=== PATIENT | female | born 1955 | race Caucasian/White ===

== ENCOUNTER 2016-04-19 00:58 | Day surgery (SDC) | payer OTHER ==
[~2016-04-19 00:58] MED LIST: 0.9% Sodium Chloride 1,000 ML IV SCH; ACET-2605 PO; ALBU8.5H2 INHALATION; AMLO2.5T2 PO; BUPR1PAT4 TD; CARV25TA PO; DOCU-41 PO; DULO60CA42 PO; HYDR-3605 PO; IMI25 PO; Lactated Ringer's 1,000 ML IV ONE; Lidocaine Patch TRANSDERM; OLME20TA3 PO; RANI150C4 PO; Sodium Chloride LOK Flush 10 mL Syringe IV PRN; fentaNYL-PF 50 mCg/mL 2 mL Inj IVPUSH PRN
[2016-04-19] MEDS ORDERED: Lactated Ringer's 1,000 ML IV ONE (06:00)
== END 2016-04-19 23:59 | disposition home or self-care (01) ==
LOC: END 00:58
PROVIDERS: ATTEND Surgery

== ENCOUNTER 2016-10-08 15:17 | Observation (INO) | payer OTHER ==
[~2016-10-08] VITALS: Ht 162.6 cm; Wt 75.1 kg
[~2016-10-08 15:17] MED LIST changes: -0.9% Sodium Chloride 1,000 ML IV SCH; -Lactated Ringer's 1,000 ML IV ONE; -Sodium Chloride LOK Flush 10 mL Syringe IV PRN; -fentaNYL-PF 50 mCg/mL 2 mL Inj IVPUSH PRN
--- NOTE | 2016-10-08 16:42 | NUR ---
Admit: Patient arrived to [facility] via stretcher @ approx 1615. Patient transferred self to bed. Patient tearful on arrival "I'm scared". Patient reassured. SR 80s per telesales representative. VSS. Alert & oriented, complains of abdominal cramping, low back pain 9/10 and nausea. Declines offer of heating pad for pain. MD text paged to notify of arrival and patient needs. Bed in low and locked position, bed rails up x3. IV saline lock in left foot. Awaiting IV therapy to attempt new IV in upper extremities. Oriented to room and call light system.
[2016-10-08 16:46] VITALS: BP 128/76; PULSE 87; RESP 16; O2SAT 95
[2016-10-08 16:47] VITALS: PULSE 86
[2016-10-08] MEDS ORDERED: LOVA10TA PO (17:34)
[2016-10-08] MEDS ORDERED: NABU750T PO (17:34)
[2016-10-08] MEDS ORDERED: FENT1PAT11 TRANSDERM (17:34)
[2016-10-08] MEDS ORDERED: SUMA50TA2 PO (17:34)
[2016-10-08] MEDS ORDERED: PROM25TA14 PO (17:34)
[2016-10-08] MEDS ORDERED: DICY10CA13 PO (17:34)
[2016-10-08] MEDS ORDERED: AMLO5TAB2 PO (17:34)
[2016-10-08] MEDS ORDERED: FEXO-106 PO (17:34)
[2016-10-08] MEDS ORDERED: CARV25TA2 PO (17:34)
[2016-10-08] MEDS ORDERED: DULO60CA61 PO (17:34)
[2016-10-08] MEDS ORDERED: ALBU18HF INH (17:34)
[2016-10-08] MEDS ORDERED: RANI150T11 PO (17:34)
[2016-10-08] MEDS ORDERED: Ondansetron 2 mg/mL 2 mL Inj IVPUSH PRN (18:00)
[2016-10-08] MEDS ORDERED: Senna-Docusate 8.6-50 mg Tablet PO PRN (18:00)
[2016-10-08] MEDS ORDERED: Polyethylene Glycol (PEG) 17 Gm Powder PO PRN (18:00)
[2016-10-08] MEDS ORDERED: Alum-Mag Hydrox-Simeth 30 mL Suspension PO PRN (18:00)
[2016-10-08] MEDS ORDERED: fentaNYL-PF 50 mCg/mL 2 mL Inj IVPUSH PRN (18:10)
--- NOTE | 2016-10-08 18:17 | PCM.HPMED ---
Subjective Date of Service Oct 08, 2016 Primary Provider: Admitting Physician: Taiwo Reno MD Primary Care Physician: Polo Berger MD Attending Physician: Taiwo Reno MD Chief Complaint: Abdominal pain History of Present Illness: Guillermina Jimenez is a 61-year-old woman with past medical history significant for hypertension, back pain and narcotic dependence on fentanyl patch, constipation , anxiety and depression, migraines who presented to the [facility] emergency department due to running out of her fentanyl patch. The patient ran out 2 days ago. The patient states that her prescription was filled for a smaller number patches then she realized and she had not been able to get a refill from her primary care doctor. The patient notes nausea and abdominal pain as well as vomiting. She notes diaphoresis as well as some mild palpitations. The patient notes headache as well. She denies any fever, chills , cough, chest pressure, arm pain, neck pain, shortness of breath, orthopnea or paroxysmal nocturnal dyspnea. She denies any melena or hematochezia. She denies any hematemesis or coffee-ground emesis. The patient does have a history of prior myocardial infarction about 2 years ago. During this event the patient completely lost consciousness and does not remember any preceding symptoms. The patient did not undergo any interventions at the time. The patient is a smoker for many years and has been trying to reduce her smoking. Patient was transferred to our hospital due to a lack of beds at [facility]. The patient was noted to have labs that were significant for an elevated troponin I of 0.14 with a repeat troponin of 0.17. The ER physician at [facility] thought that she should undergo a cardiac workup due to her risk factors. Other labs were notable for magnesium of 1.6 a normal lipase of 53, creatinine of 1.13, BUN of 122, glucose of 132. AST, a LT, alkaline phosphatase , liver then for all normal. WBCs were notable to be 18.9 with a hemoglobin of 17.1 with platelets of 298. Neutrophils were noted to be 15.7%. Review of Systems: A comprehensive review of systems was performed is negative except as noted above in history present illness. Allergies Coded Allergies: codeine (Verified Allergy, Severe, 10/08/16) hydrocodone (Verified Allergy, Severe, ITCH, NO RASH, 10/08/16) pentazocine (Verified Allergy, Severe, 10/08/16) Cephalexin Monohydrate (Verified Allergy, Unknown, 10/08/16) amoxicillin (Verified Allergy, Unknown, 10/08/16) clavulanic acid (Verified Allergy, Unknown, 10/08/16) topiramate (Verified Allergy, Unknown, 10/08/16) erythromycin ethylsuccinate (Verified Adverse Reaction, Severe, nausea/ vomiting/ diarrhea- gi tract problems, 10/08/16) ketorolac (Verified Adverse Reaction, Mild, DIARRHEA, 10/08/16) meperidine (Verified Adverse Reaction, Mild, AGITATION, 10/08/16) Home Medications Ducolax Valium 10 mg Cymbalta 30 mg Fentanyl 100 g per hour patch Hydroxyzine 50 mg 1-2 tablets by mouth 4 times a day when necessary 10 mg methadone 4 times a day by mouth Ranitidine 150 mg once daily Senna 8.6 mg as needed Imitrex 50 mg PMH Migraines Hypertension Pressure anxiety Chronic back pain on fentanyl patch GERD Constipation Surgical History Appendectomy Exploratory laparotomy Carpal tunnel surgery Family History Mother is diabetic Social History Hx Alcohol Use: No Hx Substance Use: No Hx Tobacco Use: Yes (1/2 to 3/4 pack per day) Smoking Status: Light Tobacco Smoker Exam Vital Signs Vital Sign - Last Date Time Temp Pulse Resp B/P Pulse Ox O2 Delivery O2 Flow Rate FiO2 10/08/16 16:47 86 10/08/16 16:46 37.2 16 128/76 95 Room Air Exam General: Appears quite uncomfortable and in moderate distress due to pain. Well- developed, well-nourished, appropriately interactive HEENT: Normocephalic, atraumatic. External ears without defect. Pupils equal, round, and reactive to light and accommodation. Pupils dilated. Anicteric sclerae, moist conjunctivae, and no lid lag. Oropharynx free of erythema and cobble stoning with moist mucosa. Neck: Supple with full range of motion. No jugular venous distension. No bruits. No lymphadenopathy or thyromegaly. Cardiovascular: Regular rate and rhythm with no murmurs, rubs, or gallops appreciated Pulmonary: Clear to auscultation bilaterally with no crackles, wheezes, or rhonchi. Normal respiratory effort with no use of accessory muscles. Abdomen: Bowel tones present. Soft, mildly tender midline, nondistended. No hepatosplenomegaly or masses appreciated. Extremities: No clubbing, cyanosis, edema, or lymphadenopathy appreciated. Skin: Normal temperature, turgor, and texture; no rash, ulcers, or subcutaneous nodules appreciated. Neurological: Cranial nerves grossly intact. Normal muscle strength, tone, and bulk. Reflexes, coordination, and sensory function within normal limits. No known gait impairment. Psychiatric: Appears very anxious. Alert and oriented to person, place, and time. Assessment & Plan Guillermina Jimenez is a 61-year-old woman with past medical history significant for hypertension, back pain and narcotic dependence on fentanyl patch, constipation , anxiety and depression, migraines who presented to the [facility] emergency department due to running out of her fentanyl patch. The patient ran out 2 days ago. Abdominal pain, present on admission, active -Possibly secondary to constipation, withdrawal, versus intra-abdominal process. Patient is noted to have thickened anemia was uncertain chronicity. -KUB -Bowel regiment -Fecal occult blood test -Consider abdominal CT if her symptoms do not resolve once her withdrawal is completed Elevated troponin, present on admission, active -Patient is not having any chest pain at this time. -We will continue to trend troponin, trend EKGs. Stress test tomorrow a.m. -Telemetry monitoring -No indication for heparin at this time. Patient was given full dose aspirin at [facility] emergency department. Narcotic withdrawal, present on admission, active -Patient given her sentinel patch at [facility] -We will also give an additional 25 g of fentanyl every 2 hours as needed for withdrawal symptoms and pain. -Zofran as needed for nausea -Ativan as needed for anxiety -Patient hemoconcentrated due to vomiting. Will continue IV NS and recheck CBC in AM. Anxiety/depression, present on admission, chronic, active -Initiate patient's outpatient psychiatric medications Migraines, present on admission, chronic -Imitrex as needed CODE STATUS: Full code Patient is admitted under observation status with expected length of stay less than 2 midnights due to severity of presenting symptoms, risk of adverse event, and complexity of treatment plan. ( VTE Prophylaxis: Sub-Q Heparin (Unfractionated) Resuscitation Status: CPR: Attempt Resuscitation Attending Statement Discontinued NSAIDs and Imitrex as patient is being ruled out for ACS. Fentanyl increased to 37.5 mcg/hr PRN as she was not getting enough pain control. Morphine is discontinued, not part of the plan that was discussed. Pt is already receiving Fentanyl. Ativan PRN is discontinued, not part of the plan that was discussed. I am not sure why patient was receiving a blood transfusion, as this was not discussed. Duloxetine was changed to jemal from PRN. Patient is seen and examined on 10/08/16 at 8PM. I agree with the rest of the plan above. Carol Ann Murphy DO Oct 08, 2016 18:17 Tiara Antonio DO Oct 08, 2016 22:18
[2016-10-08] MEDS ORDERED: diphenhydrAMINE 25 mg Capsule PO ONE (18:30)
[2016-10-08] MEDS: Polyethylene Glycol (PEG) 17 Gm Powder PO SCH (18:39)
[2016-10-08] MEDS: 0.9% Sodium Chloride 1,000 ML IV SCH (18:42)
[2016-10-08] MEDS: Sodium Chloride LOK Flush 10 mL Syringe IVFLUSH SCH (18:42)
[2016-10-08 18:45] LABS: APPEARANCE,URINE CLEAR (CLEAR,HAZY); COLOR,URINE YELLOW (YELLOW)
[2016-10-08 18:46] LABS: OCCULT BLOOD,URINE TRACE (NEGATIVE); UROBILINOGEN,URINE NORMAL (NORMAL)
[2016-10-08 19:53] LABS: BASOPHILS % (AUTO) 0.1 % (0-3); EOSINOPHILS % (AUTO) 0 % (0-5); MONOCYTES % (AUTO) 12.4 % (4-12); Mean Corpuscular Hemoglobin 30.9 pg (27.0-35.0); Mean Corpuscular Volume 88.5 fL (81-100); NEUTROPHILS % (AUTO) 68.7 % (40-74); Platelet Count 239 bil/L (150-400)
[2016-10-08 19:56] LABS: Creatine Kinase 71 U/L (21-215); Magnesium 1.6 mg/dL (1.6-2.6); Unsaturated Iron Binding 161.3 ug/dL
[2016-10-08 19:57] LABS: TROPONIN T < 0.010 ug/L (0.0-0.011)
[2016-10-08 20:00] VITALS: PULSE 83
[2016-10-08] MEDS: 0.9% Sodium Chloride 250 ML IV SCH (20:21)
--- NOTE | 2016-10-08 20:24 | NUR ---
Update Recent H/H = . Dr. Murphy notified. PRBC transfusion aborted. IV access in left FA established. Left foot IV access D/C'd intact. No overt complications noted.
[2016-10-08 20:50] VITALS: BP 109/70; PULSE 75; RESP 16; O2SAT 96
[2016-10-08] MEDS: DULoxetine 30 mg DR Capsule PO SCH (21:19)
--- NOTE | 2016-10-08 21:24 | DRSVH ---
PROCEDURE: X-RAY KUB ([id number]) INDICATIONS: abd pain TECHNIQUE: One view of the abdomen acquired. COMPARISON: None. FINDINGS: Surgical changes and devices: Multiple clips are present overlying the pelvis. Bowel: Bowel gas pattern demonstrates mild lead prominent dilated loops of colon. Soft tissues: No suspicious abdominal calcifications. Visualized solid organ contours appear normal in size. Bones: No suspicious bony lesions. Prominent scoliotic curvature is present within the lumbar spine. IMPRESSION: Nonspecific bowel gas pattern with several mildly dilated loops of colon. Interval followup is recommended, as developing ileus versus partial obstruction cannot be excluded. Dictated by: Ruma Phillips M.D. on 10/08/2016 at 21:20 Approved by: Ruma Phillips M.D. on 10/08/2016 at 21:22
--- NOTE | 2016-10-08 21:25 | DRSVH ---
PROCEDURE: X-RAY CHEST ONE VIEW, PORTABLE ([id number]) INDICATIONS: Chest pain TECHNIQUE: One view of the chest was acquired. COMPARISON: None. FINDINGS: Surgical changes and devices: None. Lungs and pleura: No pleural effusions or pneumothorax. Lungs are clear. Mediastinum: Mediastinal contours appear normal. Heart size is normal. Bones and chest wall: Sclerosis is present within the right humeral head, unchanged compared to likely enchondroma. Overlying soft tissues appear unremarkable. IMPRESSION: No acute pulmonary process. Dictated by: Ruma Phillips M.D. on 10/08/2016 at 21:22 Approved by: Ruma Phillips M.D. on 10/08/2016 at 21:23
[2016-10-08] MEDS: fentaNYL-PF 50 mCg/mL 2 mL Inj IVPUSH PRN (23:49)
[2016-10-09] VITALS (7 sets, daily range): BP systolic 104–123; BP diastolic 63–71; PULSE 59–67; RESP 16–18; O2SAT 94–97
[2016-10-09] MEDS: Heparin 5,000 Unit/mL Inj SUBQ SCH ×3 (00:05→16:30)
--- NOTE | 2016-10-09 00:16 | NUR ---
Behavior / pain Pt is tearful since admission. Pt is screaming hysterically. Pt was encouraged to verbalize her needs. Pt became angry at staff. Pt medicated with Fentanyl and Ambien for insomnia. Pt is apologetic to staff after medicated.
[2016-10-09 01:23] LABS: Creatine Kinase 77 U/L (21-215); TROPONIN T 0.016 ug/L (0.0-0.011)
[2016-10-09] MEDS: 0.9% Sodium Chloride 1,000 ML IV SCH ×4 (02:04→23:02)
[2016-10-09] MEDS: fentaNYL-PF 50 mCg/mL 2 mL Inj IVPUSH PRN ×3 (05:14→12:46)
[2016-10-09 06:41] LABS: BASOPHILS % (AUTO) 0.2 % (0-3); EOSINOPHILS % (AUTO) 0 % (0-5); MONOCYTES % (AUTO) 11.9 % (4-12); Mean Corpuscular Hemoglobin 30.6 pg (27.0-35.0); Mean Corpuscular Volume 90.5 fL (81-100); NEUTROPHILS % (AUTO) 48.4 % (40-74); Platelet Count 189 bil/L (150-400)
[2016-10-09] MEDS ORDERED: Albuterol 2.5 mg/3 mL Inhalation Solution NEB PRN (07:00)
[2016-10-09] MEDS: Sodium Chloride LOK Flush 10 mL Syringe IVFLUSH SCH ×2 (08:14→16:30)
[2016-10-09] MEDS ORDERED: KCl 20 mEq/100 mL(CENTRAL) 20 MEQ in IV Premix 1 EACH IV ONE (08:20)
[2016-10-09] MEDS: DULoxetine 30 mg DR Capsule PO SCH (08:24)
[2016-10-09] MEDS: Polyethylene Glycol (PEG) 17 Gm Powder PO SCH (08:30)
[2016-10-09] MEDS ORDERED: KCl 20 mEq/250 mL D5W (Peripheral Line) IV ONE ×2 (08:40)
[2016-10-09 09:14] LABS: Hemoglobin A1C 5.3 % (4.8-5.6)
--- NOTE | 2016-10-09 10:43 | NUR ---
Behaviors Patient screaming in hallway "get me the fuck out of here"! This RN then approached patient who continued to yell "no one is helping me!" Patient then screamed get this "fucking thing out of me" in reference of IV. Patient then ripped IV out. This RN ensured IV was fully intact. This RN brought AMA paperwork and called security to room due to agitation and screaming. Patient then stated she did not want to leave and repeatedly apologized. This RN explained to patient we do not scream or yell at staff. Patient stated that she had increased agitation due to pain. MD notified.
--- NOTE | 2016-10-09 11:33 | NUR ---
Social Work-multidisciplinary rounds: Per MD in morning rounds, pt to have MIBI today. Anticipate pt to be ready to discharge tomorrow.SW to complete assessment today. CLIFF [place]
[2016-10-09] MEDS ORDERED: Magnesium Sulf 2 Gm/50mL Water 2 GM in IV Premix 1 EACH IV ONE (12:15)
[2016-10-09] MEDS ORDERED: POLY17PO2 PO ×2 (12:41)
[2016-10-09] MEDS ORDERED: CYCL10TA9 PO (12:41)
--- NOTE | 2016-10-09 15:55 | PCM.PNMED ---
Subjective Date of Service Oct 09, 2016 Subjective Patient has been in labile mode all day. She was requesting Valium several times today, was shouting at the staff and wanting to leave AMA. Her medications were not reconciled in the morning, once we got the list reviewed by pharmacy, it appears she has no Valium on her home med list. She says that she always gets 1 less fentanyl patch from the pharmacy for some unknown reason , this is also being investigated by the pharmacy. She says her home medication Flexeril does not work, as she does not take it, she knows that Soma over Valium do work for her. She says her abdominal pain and nausea and vomiting have improved since being only on clear liquids. She had a large bowel movement last night. Exam Vital Signs Vital Sign - Last Date Time Temp Pulse Resp B/P Pulse Ox O2 Delivery O2 Flow Rate FiO2 10/09/16 11:58 37.2 64 16 123/70 94 Room Air Intake and Output 10/08/16 10/08/16 10/09/16 Cumulative From/Thru 15:00 23:00 07:00 10/08/16 16:35 - 10/09/16 06:11 Intake Total 200 ml 1140 ml 1340 ml Output Total 300 ml 400 ml 700 ml Balance -100 ml 740 ml 640 ml Intake Oral 200 ml 0 ml 200 ml IV Total 1140 ml 1140 ml Output Urine Total 300 ml 400 ml 700 ml Exam Gen.: Patient is distressed over her pain and a lot of control over her pain HEENT: Normocephalic, atraumatic, poor dentition Heart: Grade 1+ systolic murmur with radiation to shoulder/axilla, no radiation to neck Lungs: Clear to auscultation no crackles or wheezes Abdomen: Mild tenderness over the bladder Extremities: Good range of motion Psych: Anxiety, Labile mood IVs and Medications IV Fluids NSS 100 mL per hour Medications Reviewed: Medications were reviewed in detail Lab and Diagnostics Laboratory Tests Test 10/09/16 00:11 10/09/16 05:50 10/09/16 11:08 Total Creatine Kinase 77U/L (21-215) Creatine Kinase MB 4.8ng/mL (0.0-5.3) Creatine Kinase MB % % (0.0-5.0) Troponin T 0.016ug/L (0.0-0.011) 0.010ug/L (0.0-0.011) White Blood Count 9.6th/mm3 (3.8-10.1) Red Blood Count 4.21mil/mm3 (3.90-5.20) Hemoglobin 12.9g/dL (12.0-15.6) Hematocrit 38.1% (35.0-46.0) Mean Corpuscular Volume 90.5fL (81-100) Mean Corpuscular Hemoglobin 30.6pg (27.0-35.0) Mean Corpuscular Hemoglobin Concent 33.9% (32.0-37.0) Red Cell Distribution Width 13.4% (12.3-15.4) Platelet Count 189bil/L (150-400) Neutrophils (%) (Auto) 48.4% (40-74) Lymphocytes (%) (Auto) 39.3% (14-46) Monocytes (%) (Auto) 11.9% (4-12) Eosinophils (%) (Auto) 0% (0-5) Basophils (%) (Auto) 0.2% (0-3) Sodium Level 137mEq/L (134-144) Potassium Level 3.4mEq/L (3.5-5.2) 3.6mEq/L (3.5-5.2) Chloride Level 98mEq/L (97-108) Carbon Dioxide Level 23mmol/L (18-29) Blood Urea Nitrogen 17mg/dL (8-27) Creatinine 1.07mg/dL (0.57-1.00) Estimat Glomerular Filtration Rate 75mL/min (>59) Glucose Level 86mg/dL (60-99) Calcium Level 8.9mg/dL (8.5-10.1) Magnesium Level 1.5mg/dL (1.6-2.6) Triglycerides Level 248mg/dL (0-149) Cholesterol Level 199mg/dL (100-199) LDL Cholesterol, Calculated 116.400mg/dL (0-99) VLDL Cholesterol 49.600mg/dL HDL Cholesterol 33mg/dL (>39) Cholesterol/HDL Ratio 6.03 (0.0-4.4) Microbiology 10/08/16 Blood Culture - Preliminary, Resulted NO GROWTH AFTER 24 HOURS Result Diagram: 10/09/16 0550 10/09/16 6198 X-Rays, CTs and MRIs PROCEDURE: X-RAY KUB ([id number]) INDICATIONS: abd pain IMPRESSION: Nonspecific bowel gas pattern with several mildly dilated loops of colon. Interval followup is recommended, as developing ileus versus partial obstruction cannot be excluded. Dictated by: Ruma Phillips M.D. on 10/08/2016 at 21:20 Approved by: Ruma Phillips M.D. on 10/08/2016 at 21:22 PROCEDURE: X-RAY ACUTE ABDOMINAL SERIES ([id number]) INDICATIONS: ileus vs SMALL BOWEL OBSTRUCTION IMPRESSION: No acute cardiopulmonary or intra-abdominal findings. No bowel dilatation to suggest ileus or obstruction. Dictated by: Macie Jones M.D. on 10/09/2016 at 16:45 Approved by: Macie Jones M.D. on 10/09/2016 at 16:46 Assessment & Plan Guillermina Jimenez is a 61-year-old woman with past medical history significant for hypertension, back pain and narcotic dependence on fentanyl patch, constipation , anxiety and depression, migraines who presented to the [facility] emergency department due to running out of her fentanyl patch. The patient ran out 2 days ago. Ileus, present on admission, resolved -Possibly secondary to constipation -Bowel regiment -Abdominal X-ray yesterday showed some concern for partial ileus/SBO. She has had BM since then and is feeling better, nausea is improving, so did a f/u Abd X -ray which showed no issues with SBO or ileus. Elevated troponin, present on admission, active -Patient is not having any chest pain at this time. -We will continue to trend troponin, trend EKGs. Stress test tomorrow a.m. -Telemetry monitoring -No indication for heparin at this time. Patient was given full dose aspirin at [facility] emergency department. -Pt did not receive stress test on 10/09 due to electrolyte issues. Will replete and attempt on 10/09 Narcotic withdrawal, present on admission, active -Patient given her fentanyl patch at [facility] -Zofran as needed for nausea -Hydroxyzine 25 mg every 6 hours when necessary for anxiety, melatonin for sleep -IV fentanyl is discontinued 7/11 Anxiety/depression, present on admission, chronic, active -Initiated patient's outpatient psychiatric medications Migraines, present on admission, chronic -Imitrex is held as she is being worked up with stress test Chronic pain secondary to scoliosis -- Patient is only on fentanyl patch at this time IV fentanyl was discontinued -- Added Robaxin 500 mg 4 times a day when necessary for muscle relaxer. Discontinued her Flexeril home medication as she says she does not take it Hypertension chronic active -- She is currently only on her carvedilol because pressures at the time of arrival -- We will reinstate her medications slowly as needed Pain with urination: -- She has no urine infection is genitourinary -- We will continue to monitor -- Pyridium is ordered CODE STATUS: Full code Patient is admitted under observation status with expected length of stay less than 2 midnights due to severity of presenting symptoms, risk of adverse event, and complexity of treatment plan. ( Pain Evaluation: Pain not Controlled VTE Prophylaxis: Sub-Q Heparin (Unfractionated) VTE Mechanical Devices: Intermittant Pneumatic CD Resuscitation Status: CPR: Attempt Resuscitation Time spent 30 min Tiara Antonio DO Oct 09, 2016 15:42 Time spent 30 min Tiara Antonio DO Oct 09, 2016 15:42
--- NOTE | 2016-10-09 16:00 | NUR ---
Social Work-attempted assessment: Data:EMR Reviewed. Pt is a 61 y/o female who was admitted on 10/08/16 for fentanyl withdrawal per H&P. Pt's insurance is [employer] and PCP is Cookie Harmon MD. SW attempted to meet with pt at bedside, SW role explained. Pt states "I have nothing to say to you and you can leave." SW will attempt to complete assessment tomorrow. SW will continue to follow. Assessment:Pt who is independent at baseline. Plan:SW will attempt assessment tomorrow. Pt did not want to speak with SW today. SW will continue to follow. CLIFF [place]
--- NOTE | 2016-10-09 16:48 | DRSVH ---
PROCEDURE: X-RAY ACUTE ABDOMINAL SERIES ([id number]) INDICATIONS: ileus vs SMALL BOWEL OBSTRUCTION TECHNIQUE: One view chest and two views of the abdomen were acquired. COMPARISON: [facility], , ABD ACUTE SERIES, 12/24/2010, 23:19. FINDINGS: Surgical changes and devices: Multiple surgical clips are projected over the pelvis. Chest: Lungs are clear. Heart size is normal. No pleural effusions. No pneumoperitoneum. Abdomen: Bowel gas pattern is normal. No suspicious calcifications. Visualized solid organ contour s appear normal. Bones: No suspicious bony lesions. IMPRESSION: No acute cardiopulmonary or intra-abdominal findings. No bowel dilatation to suggest ileu s or obstruction. Dictated by: aMcie Jones M.D. on 10/09/2016 at 16:45 Approved by: Macie Jones M.D. on 10/09/2016 at 16:46
[2016-10-09] MEDS: hydrOXYzine Pamoate 25 mg Capsule PO PRN (17:43)
--- NOTE | 2016-10-09 19:23 | NUR ---
Behavior/Pain Pt reports high pain up to 10/10 in back with muscle spasms. Is tearful and very agitated on occasion. Mood can be very pleasant but pt continues to report high pain. Pt pulled out IV line and ID bands came out into hallway and was yelling. Redirected pt back into room and shortly after pt calmed down and became tearfully apologetic for behavior. Pt became upset several times like this during shift. Each time instructed pt about the importance of following DR orders and complying for safety.
[2016-10-09] MEDS: 0.9% Sodium Chloride 250 ML IV SCH (20:15)
--- NOTE | 2016-10-09 22:27 | NUR ---
Care Report given and care transferred to Heather Shah RN.
[2016-10-10] MEDS ORDERED: Phenazopyridine 97.5 mg Tablet PO PRN (00:05)
[2016-10-10] MEDS: Heparin 5,000 Unit/mL Inj SUBQ SCH (00:23)
[2016-10-10] MEDS: Sodium Chloride LOK Flush 10 mL Syringe IVFLUSH SCH (00:30)
[2016-10-10 00:40] VITALS: BP 97/60; PULSE 54; RESP 20; O2SAT 96
[2016-10-10 05:13] VITALS: BP 96/58; PULSE 60; RESP 20; O2SAT 97
--- NOTE | 2016-10-10 05:22 | NUR ---
Shift Note Assumed pt care at 2230, pt alert/oriented x4, able to make needs known, noted mild anxiety, c/o generalized body pain, given PRN Robaxin, no relief per pt report, at 0100, pt noted with increasing restlessness, yelling, at unit forte, crying, bursts of verbal aggression, attempts to pull IV access out, requested pain meds, and anti anxiety meds, redirected back to pt's room, apologetic with said behavior, [address] Sherman, obtained order for one time po valium and pain med, given, post 1hr recheck, pt noted awake, calm, no verbal/behavior aggression towards staff. Pt NPO post midnight for am stress test, call light in reach at all times.
[2016-10-10] MEDS: hydrOXYzine Pamoate 25 mg Capsule PO PRN (05:59)
--- NOTE | 2016-10-10 07:22 | NUR ---
Behavior Patient continues to scream out in forte "I want to be transferred to a different hospital!" This RN approached patient who then began to scream at her with vulgar language. RN requested not be sworn at or yelled at. Patient continued to scream and swear. This RN explained to patient that when she able to not swear at this RN then she can re-approach. Patient stated "I want out of here". AMA paperwork prepared and brought into room. Patient told her to get "the fuck out". RN left room.
--- NOTE | 2016-10-10 07:52 | NUR ---
AMA Patient continued to take off tele and IV. Security called. Patient continued to state that "we are kicking her out of here". Security and this RN attempted to reassure patient she was not being kicked out or asked to leave. Yet did remind patient to not curse at staff. Patient continued to swear and yell. Stated I want the "fuck out of here". LOLA paperwork signed. Assisted patient to WC. Patient refused to allow staff to push her in WC. Patient continued to wheel herself out of hallway to elevator as she continued to yell at staff. tractor drill operator walked with patient down to [facility]. Addendum: 10/10/16 at 0756 by WILL CHONG RN notified.
--- NOTE | 2016-10-11 01:06 | PCM.DC.MED ---
Discharge Summary Date of Service Oct 11, 2016 Dates of Hospitalization Date of Hospital Admission Oct 08, 2016 at 16:21 Date of Discharge: Oct 10, 2016 Providers: Admitting Physician: Taiwo Reno MD Primary Care Physician: Cookie Harmon MD Attending Physician: Tiara Antonio DO Diagnosis at Time of Discharge Diagnosis at Time of Discharge Elevated troponins, ACS R/O, narcotic dependence Procedures XRay, CTs & MRIs PROCEDURE: X-RAY KUB ([id number]) INDICATIONS: abd pain IMPRESSION: Nonspecific bowel gas pattern with several mildly dilated loops of colon. Interval followup is recommended, as developing ileus versus partial obstruction cannot be excluded. Dictated by: Ruma Phillips M.D. on 10/08/2016 at 21:20 Approved by: Ruma Phillips M.D. on 10/08/2016 at 21:22 PROCEDURE: X-RAY ACUTE ABDOMINAL SERIES ([id number]) INDICATIONS: ileus vs SMALL BOWEL OBSTRUCTION IMPRESSION: No acute cardiopulmonary or intra-abdominal findings. No bowel dilatation to suggest ileus or obstruction. Dictated by: Macie Jones M.D. on 10/09/2016 at 16:45 Approved by: Macie Jones M.D. on 10/09/2016 at 16:46 Brief History Guillermina Jimenez is a 61-year-old woman with past medical history significant for hypertension, back pain and narcotic dependence on fentanyl patch, constipation , anxiety and depression, migraines who presented to the [facility] emergency department due to running out of her fentanyl patch. The patient ran out 2 days ago. The patient states that her prescription was filled for a smaller number patches then she realized and she had not been able to get a refill from her primary care doctor. The patient notes nausea and abdominal pain as well as vomiting. She notes diaphoresis as well as some mild palpitations. The patient notes headache as well. She denies any fever, chills , cough, chest pressure, arm pain, neck pain, shortness of breath, orthopnea or paroxysmal nocturnal dyspnea. She denies any melena or hematochezia. She denies any hematemesis or coffee-ground emesis. The patient does have a history of prior myocardial infarction about 2 years ago. During this event the patient completely lost consciousness and does not remember any preceding symptoms. The patient did not undergo any interventions at the time. The patient is a smoker for many years and has been trying to reduce her smoking. Patient was transferred to our hospital due to a lack of beds at [facility]. The patient was noted to have labs that were significant for an elevated troponin I of 0.14 with a repeat troponin of 0.17. The ER physician at [facility] thought that she should undergo a cardiac workup due to her risk factors. Other labs were notable for magnesium of 1.6 a normal lipase of 53, creatinine of 1.13, BUN of 122, glucose of 132. AST, a LT, alkaline phosphatase , liver then for all normal. WBCs were notable to be 18.9 with a hemoglobin of 17.1 with platelets of 298. Neutrophils were noted to be 15.7%. Hospital Course Guillermina Jimenez is a 61-year-old woman with past medical history significant for hypertension, back pain and narcotic dependence on fentanyl patch, constipation , anxiety and depression, migraines who presented to the [facility] emergency department due to running out of her fentanyl patch. The patient ran out 2 days ago. Ileus, present on admission, resolved -Possibly secondary to constipation -Bowel regiment -Abdominal X-ray yesterday showed some concern for partial ileus/SBO. She has had BM since then and is feeling better, nausea is improving, so did a f/u Abd X -ray which showed no issues with SBO or ileus. Elevated troponin, present on admission, active -Patient is not having any chest pain at this time. -We will continue to trend troponin, trend EKGs. Stress test tomorrow a.m. -Telemetry monitoring -No indication for heparin at this time. Patient was given full dose aspirin at [facility] emergency department. -Pt did not receive stress test on 10/09 due to electrolyte issues. Will replete and attempt on 10/10 -Pt has left AMA according to a phone call I have received from the charge nurse 10/10 AM before I even had a chance to see this patient. Narcotic withdrawal, present on admission, active -Patient given her fentanyl patch at [facility] -Zofran as needed for nausea -Hydroxyzine 25 mg every 6 hours when necessary for anxiety, melatonin for sleep -IV fentanyl is discontinued 10/09 Anxiety/depression, present on admission, chronic, active -Initiated patient's outpatient psychiatric medications -Hydroxyzine PO PRN Migraines, present on admission, chronic -Imitrex is held as she is being worked up with stress test Chronic pain secondary to scoliosis -- Patient is only on fentanyl patch at this time IV fentanyl was discontinued -- Added Robaxin 500 mg 4 times a day when necessary for muscle relaxer. Discontinued her Flexeril home medication as she says she does not take it Hypertension chronic active -- She is currently only on her carvedilol because pressures at the time of arrival -- We will reinstate her medications slowly as needed Pain with urination: -- She has no urine infection is genitourinary -- We will continue to monitor -- Pyridium/AZO is ordered CODE STATUS: Full code Patient is admitted under observation status with expected length of stay less than 2 midnights due to severity of presenting symptoms, risk of adverse event, and complexity of treatment plan. ( Exam Vital Signs (Last) Date Time Temp Pulse Resp B/P Pulse Ox O2 Delivery O2 Flow Rate FiO2 10/10/16 05:13 36.7 60 20 96/58 97 Room Air Test 10/08/16 18:23 10/08/16 19:00 10/08/16 19:50 10/08/16 21:05 Urine Color Yellow (YELLOW) Urine Appearance Clear (CLEAR,HAZY) Urine pH 6.0 (5.0-8.0) Urine Specific Mcdonald 1.025 (1.003-1.035) Urine Protein 100mg/dL (NEG,TRACE) Urine Glucose (UA) Negativemg/dL (NEGATIVE) Urine Ketones Negativemg/dL (NEGATIVE) Urine Occult Blood Trace (NEGATIVE) Urine Nitrite Negative (NEGATIVE) Urine Bilirubin Negative (NEGATIVE) Urine Urobilinogen Normalmg/dL (NORMAL) Urine Leukocyte Esterase Negative (NEGATIVE) Urine RBC 0-2/hpf (0-2) Urine WBC 0-5/hpf (0-5) Urine Epithelial Cells None/hpf (NONE-MOD) Urine Crystals None seen (NONE SEEN) Urine Bacteria Few/hpf (NONE-FEW) Urine Hyaline Casts None/lpf (NONE) Urine Granular Casts None seen (NONE SEEN) Urine Waxy Casts None seen (NONE SEEN) Urine Red Blood Cell Casts None seen (NONE SEEN) Urine White Blood Cell Casts None seen (NONE SEEN) Urine Mucus None seen (None Seen) Urine Trichomonas None seen (NONE SEEN) Urine Yeast None (NONE SEEN) Urinalysis Comment None Urine Culture Reflexed Not indicated Reticulocyte Count,Calculated 1.0% (0.6-2.6) Hemoglobin A1c 5.3% (4.8-5.6) Iron Level 103ug/dL (35-150) Total Iron Binding Capacity 264ug/dL (250-450) Percent Iron Saturation 39%sat (15-50) Unsaturated Iron Binding 161.3ug/dL Ferritin 73ng/mL (13-150) Pro-B-Type Natriuretic Peptide 8724pg/mL (0-287) Vitamin B12 Level 493pg/mL (211-946) Folate 8.4ng/mL (>3.0) Thyroid Stimulating Hormone (TSH) 1.540uIU/mL (0.450-4.500) Total Bilirubin 0.5mg/dL (0.0-1.2) Aspartate Amino Transf (AST/SGOT) 25U/L (0-50) Alanine Aminotransferase (ALT/SGPT) 7U/L (0-32) Alkaline Phosphatase 71U/L (25-165) Total Protein 6.5g/dL (6.4-8.4) Albumin 4.0g/dL (3.4-5.0) Hold Brothers Top Tube Received (Received) Test 10/09/16 00:11 10/09/16 05:50 10/09/16 11:08 Total Creatine Kinase 77U/L (21-215) Creatine Kinase MB 4.8ng/mL (0.0-5.3) Creatine Kinase MB % % (0.0-5.0) White Blood Count 9.6th/mm3 (3.8-10.1) Red Blood Count 4.21mil/mm3 (3.90-5.20) Hemoglobin 12.9g/dL (12.0-15.6) Hematocrit 38.1% (35.0-46.0) Mean Corpuscular Volume 90.5fL (81-100) Mean Corpuscular Hemoglobin 30.6pg (27.0-35.0) Mean Corpuscular Hemoglobin Concent 33.9% (32.0-37.0) Red Cell Distribution Width 13.4% (12.3-15.4) Platelet Count 189bil/L (150-400) Neutrophils (%) (Auto) 48.4% (40-74) Lymphocytes (%) (Auto) 39.3% (14-46) Monocytes (%) (Auto) 11.9% (4-12) Eosinophils (%) (Auto) 0% (0-5) Basophils (%) (Auto) 0.2% (0-3) Sodium Level 137mEq/L (134-144) Chloride Level 98mEq/L (97-108) Carbon Dioxide Level 23mmol/L (18-29) Blood Urea Nitrogen 17mg/dL (8-27) Creatinine 1.07mg/dL (0.57-1.00) Estimat Glomerular Filtration Rate 75mL/min (>59) Glucose Level 86mg/dL (60-99) Calcium Level 8.9mg/dL (8.5-10.1) Magnesium Level 1.5mg/dL (1.6-2.6) Troponin T 0.010ug/L (0.0-0.011) Triglycerides Level 248mg/dL (0-149) Cholesterol Level 199mg/dL (100-199) LDL Cholesterol, Calculated 116.400mg/dL (0-99) VLDL Cholesterol 49.600mg/dL HDL Cholesterol 33mg/dL (>39) Cholesterol/HDL Ratio 6.03 (0.0-4.4) Potassium Level 3.6mEq/L (3.5-5.2) Discharge Medications Discharge Medications Amlodipine (Amlodipine) 5 Mg Tablet 5 MG PO DAILY (Reported) Carvedilol (Carvedilol) 25 Mg Tablet 25 MG PO BID (Reported) Dicyclomine (Dicyclomine) 10 Mg Capsule 10 MG PO BID (Reported) Fentanyl 100 mcg/hr Patch (Fentanyl 100 mcg/hr Patch) 1 Each Patch.td72 1 PATCH TRANSDERM every 3 days (Reported) Fexofenadine (Fexofenadine) 180 Mg Tablet 180 MG PO DAILY (Reported) Lovastatin (Lovastatin) 10 Mg Tablet 10 MG PO DAILY (Reported) Polyethylene Glycol 3350 (Polyethylene Glycol 3350) 17 Gm Powd.pack 17 GM PO DAILY (Reported) Ranitidine (Zantac) 150 Mg Tablet 150 MG PO DAILY (Reported) As needed Albuterol Sulfate (Ventolin HFA Inhaler) 200 Puff/18 Gm Inhaler 1 PUFF INH QID PRN PRN For Shortness of Breath (Reported) Cyclobenzaprine (Cyclobenzaprine) 10 Mg Tablet 10 MG PO TID PRN PRN Spasm ( Reported) Duloxetine (Duloxetine) 60 Mg Capsule.dr 60 MG PO DAILY PRN PRN prn (Reported) Nabumetone (Nabumetone) 750 Mg Tablet 750 MG PO BID PRN PRN For Pain (Reported) Promethazine (Promethazine) 25 Mg Tablet 25 MG PO q6 hours PRN PRN For Nausea ( Reported) Sumatriptan Succinate (Sumatriptan Succinate) 50 Mg Tablet 50 MG PO DAILY PRN PRN Headache (Reported) Tiara Antonio DO Oct 11, 2016 01:06
== END 2016-10-10 08:00 | disposition left against medical advice (07) ==
LOC: MPC 16:21
PROVIDERS: ADMIT Hospitalist; ATTEND Family Medicine
DX: R79.89 Other specified abnormal findings of blood chemistry (principal); F11.23 Opioid dependence with withdrawal; F41.8 Other specified anxiety disorders; K56.7 Ileus, unspecified; G43.909 Migraine, unspecified, not intractable, without status migrainosus; G89.4 Chronic pain syndrome; M41.9 Scoliosis, unspecified; I10 Essential (primary) hypertension; R30.9 Painful micturition, unspecified; M54.9 Dorsalgia, unspecified; K59.00 Constipation, unspecified; K21.9 Gastro-esophageal reflux disease without esophagitis; F17.210 Nicotine dependence, cigarettes, uncomplicated
CPT/HCPCS: 36415; 71010; 74000; 74022; 80048; 80053; 80061; 81000; 82550; 82553; 82607; 82728; 82746; 83036; 83540; 83550; 83735; 83880; 84132; 84443; 84484; 85025; 85045; 86922; 87040; 93005; 96374; 96375; 96376; G0379; J1644; J2060; J2270; J2405; J3010; J3480; J7030; Q0169; Q0177

== ENCOUNTER 2016-10-10 08:12 | Emergency (ER) | payer OTHER ==
[~2016-10-10] VITALS: Ht 162.6 cm; Wt 74.0 kg
[~2016-10-10 08:12] MED LIST changes: -ACET-2605 PO; +ALBU18HF INH; -ALBU8.5H2 INHALATION; -AMLO2.5T2 PO; +AMLO5TAB2 PO; -BUPR1PAT4 TD; -CARV25TA PO; +CARV25TA2 PO; +CYCL10TA9 PO; +DICY10CA13 PO; -DOCU-41 PO; -DULO60CA42 PO; +DULO60CA61 PO; +FENT1PAT11 TRANSDERM; +FEXO-106 PO; -HYDR-3605 PO; -IMI25 PO; +LOVA10TA PO; -Lidocaine Patch TRANSDERM; +NABU750T PO; -OLME20TA3 PO; +POLY17PO2 PO; +PROM25TA14 PO; -RANI150C4 PO; +RANI150T11 PO; +SUMA50TA2 PO
[2016-10-10 08:14] VITALS: BP 149/81; PULSE 68; RESP 16; O2SAT 99
--- NOTE | 2016-10-10 08:25 | ED.REPORT ---
HPI-General Illness Date of Service Oct 10, 2016 ED Provider: Demetris Lee DO Patient is a 61 year old female with a hx of chronic pain, CAD, HTN, COPD, GERD , Bipolar, and ovarian cancer who presents to the ED after just leaving AMA from room 3025. She states that she was forced to leave "for swearing" and is having trouble controlling her pain due to scoliosis, fibromyalgia, and herniated discs. She denies new symptoms including chest pain, SOB, or any other symptoms. She normally uses fentanyl patches prescribed by Cookie Harmon. Nursing Notes Stated Complaint: BODY PAIN Chief Complaint: General Complaint Nursing Notes Reviewed: Yes Allergies: Coded Allergies: codeine (Verified Allergy, Severe, 10/08/16) hydrocodone (Verified Allergy, Severe, ITCH, NO RASH, 10/08/16) pentazocine (Verified Allergy, Severe, 10/08/16) Cephalexin Monohydrate (Verified Allergy, Unknown, 10/08/16) amoxicillin (Verified Allergy, Unknown, 10/08/16) clavulanic acid (Verified Allergy, Unknown, 10/08/16) topiramate (Verified Allergy, Unknown, 10/08/16) erythromycin ethylsuccinate (Verified Adverse Reaction, Severe, nausea/ vomiting/ diarrhea- gi tract problems, 10/08/16) ketorolac (Verified Adverse Reaction, Mild, DIARRHEA, 10/08/16) meperidine (Verified Adverse Reaction, Mild, AGITATION, 10/08/16) Scheduled Amlodipine (Amlodipine) 5 Mg Tablet 5 MG PO DAILY Carvedilol (Carvedilol) 25 Mg Tablet 25 MG PO BID Dicyclomine (Dicyclomine) 10 Mg Capsule 10 MG PO BID Fentanyl 100 mcg/hr Patch (Fentanyl 100 mcg/hr Patch) 1 Each Patch.td72 1 PATCH TRANSDERM every 3 days Fexofenadine (Fexofenadine) 180 Mg Tablet 180 MG PO DAILY Lovastatin (Lovastatin) 10 Mg Tablet 10 MG PO DAILY Polyethylene Glycol 3350 (Polyethylene Glycol 3350) 17 Gm Powd.pack 17 GM PO DAILY Ranitidine (Zantac) 150 Mg Tablet 150 MG PO DAILY Scheduled PRN Albuterol Sulfate (Ventolin HFA Inhaler) 200 Puff/18 Gm Inhaler 1 PUFF INH QID PRN PRN For Shortness of Breath Cyclobenzaprine (Cyclobenzaprine) 10 Mg Tablet 10 MG PO TID PRN PRN Spasm Duloxetine (Duloxetine) 60 Mg Capsule.dr 60 MG PO DAILY PRN PRN prn Nabumetone (Nabumetone) 750 Mg Tablet 750 MG PO BID PRN PRN For Pain Promethazine (Promethazine) 25 Mg Tablet 25 MG PO q6 hours PRN PRN For Nausea Sumatriptan Succinate (Sumatriptan Succinate) 50 Mg Tablet 50 MG PO DAILY PRN PRN Headache General Time Seen by MD: 08:23 Chief Complaint Other (Pain control ) Hx Obtained From: Patient Arrived By: Walk-in Sudden in Onset?: No Onset Occurred: Onset unknown Recent Healthcare: Recent hospitalization Similar Sx Previous: Yes Past Medical History Past Medical History RI HTN COPD GERD Bipolar Ovarian cancer Reports: Coronary artery disease Past Surgical History Knee replacement Reports: Appendectomy Reports: Back/neck surgery Smoking History Light Tobacco Smoker Ambulatory Status Independent Review of Systems +chronic pain Full Review of Systems Respiratory: Denies: Shortness of breath Cardiovascular: Denies: Chest pain Complete sys rev & neg: except as marked. Physical Exam Vital Signs Vital Signs Date Time Temp Pulse Resp B/P Pulse Ox O2 Delivery O2 Flow Rate FiO2 10/10/16 09:16 62 12 135/73 98 Room Air 10/10/16 08:14 68 16 149/81 99 Room Air Initial VS: Reviewed Head / Eyes: Atraumatic, Normocephalic Neck: Full range of motion Extremities: Vascular intact, Neuro intact Skin: Warm, Dry Neurologic: Alert, Oriented, Nonfocal Psychiatric: Mood/affect normal, Behavior normal, Normal thought content General/Constitutional: Awake, Alert Behavior: Positive: Tearful Respiratory / Chest: No respiratory distress Cardiovascular: Heart rate NL Re-Eval/Medical Decision Med Decision/Clinical Course Patient presents immediately after leaving AGAINST MEDICAL ADVICE from the inpatient floor with a complaint of ongoing chronic pain and requesting narcotics. After our discussion, I did tell her that due to the chronic nature of her pain she would not receive narcotic medication in the ER however I did offer to contact the admitting service and have her readmitted for further cardiac testing as it does seem that she had had an elevated troponin prior to today. She declined readmission. She states that she understands that she will not get narcotic medications. She did make a comment to nursing staff that she was suicidal. When I went in and discussed this with her further she is not suicidal. She stated that she understands why people are driven to this however she is Orthodox and she does not want to go to hel and she would never commit suicide. She does contract for safety. Her plan is to go home today and contact her surgeon and primary care. She did express understanding of what to do if she became suicidal and stated that she would call 911. It does not seem that she is imminently suicidal. Return and follow-up precautions given. Time of Eval: 08:34 Re-Evaluation/Progress Note: Offered to continue cardiac workup that was beign performed upstairs as inpatient. Patient declines and states "I just need to control my pain". Discussed with patient that we will not treat her chronic pain and she needs to follow up with her PCP. Patient understands and agrees with plan. All questions addressed at this time. Time of Eval: 08:38 Re-Evaluation/Progress Note: After discussing discharge with patient, she reported to her nurse that she is now suddenly suicidal and would like to go home and kill herself. Time of Eval: 09:08 Re-Evaluation/Progress Note: Rechecked patient. She states that she is not suicidal and she "never said that" and she would like to leave. Discussed gravity of stating suicidal ideation. Patient states she is a gnosticist and "would never do that". She contracts for safety. Discussed plan for discharge. Patient understands and agrees with plan. All questions addressed at this time. Counseled Regarding: Diagnosis, Need for follow-up, When/why to return to ED Discharge & Departure Primary Impression: Chronic pain Chronic pain type: other chronic pain Qualified Code: G89.29 - Other chronic pain Disposition: Home Discharge Condition All VS Reviewed: Yes Condition: Stable Patient Instructions: Chronic Pain (ED) Additional Instructions: Call your primary care doctor for further pain management. Call the crisis line, return to the ER, or call 911 if you feel suicidal or have other concerns. Referrals: Cookie Harmon MD (PCP) Scribe Attestation Portions of this note were transcribed by Babatunde Roach. I, Dr. Lee personally performed the history, physical exam and medical decision-making; I reviewed and confirmed the accuracy of the information in the transcribed note. Signed by: Babatunde Roach 10/10/16, 0911 copies to: Cookie Harmon MD, Timothy S DO Oct 10, 2016 08:25 BABATUNDE ROACH Oct 10, 2016 08:34
[2016-10-10 09:16] VITALS: BP 135/73; PULSE 62; RESP 12; O2SAT 98
== END 2016-10-10 09:19 | disposition home or self-care (01) ==
LOC: SED 08:12
DX: G89.29 Other chronic pain (principal); I25.10 Atherosclerotic heart disease of native coronary artery without angina pectoris; I10 Essential (primary) hypertension; J44.9 Chronic obstructive pulmonary disease, unspecified; K21.9 Gastro-esophageal reflux disease without esophagitis; F31.9 Bipolar disorder, unspecified; C56.9 Malignant neoplasm of unspecified ovary; M79.7 Fibromyalgia; M41.9 Scoliosis, unspecified; I25.2 Old myocardial infarction; F17.200 Nicotine dependence, unspecified, uncomplicated; Z88.5 Allergy status to narcotic agent; Z88.1 Allergy status to other antibiotic agents; Z88.8 Allergy status to other drugs, medicaments and biological substances